=== PATIENT | male | born 1950 | race Caucasian/White ===

== ENCOUNTER 2021-05-28 19:14 | Emergency (ER) | payer MEDICARE, BC ==
--- NOTE | 2021-05-28 19:51 | EDM.PDOC ---
ED HPI GENERAL MEDICAL PROBLEM - General Chief Complaint: Lower Extremity Injury/Pain Stated Complaint: LEFT ACHELIS POSSABLY TORE Time Seen by Provider: 05/28/21 19:15 - History of Present Illness INITIAL COMMENTS - FREE TEXT/NARRATIVE: 70yoM with minimal PMH presents with left ankle pain and concern for Achilles tendon rupture. Patient was lifting a boat onto the rollers of the trailer had acute pain and felt a pop he is been unable to bear weight on his right forefoot since that time. Some pain in the calf as well no knee pain no other foot pain no fall no other injury. Pain is moderate and worsens with weightbearing. Left Lower Leg Pain Score (Numeric/FACES): 6 - Related Data Allergies Allergy/AdvReac Type Severity Reaction Status Date / Time No Known Allergies Allergy Verified 08/11/15 14:05 Review of Systems - Review of Systems Review Of Systems: See Below Eyes: Reports: No Symptoms Cardiovascular: Reports: No Symptoms GI/Abdominal: Reports: No Symptoms Musculoskeletal: Reports: Other (Per HPI) ED EXAM, GENERAL - Physical Exam Exam: See Below Free Text/Narrative:: General Appearance: No acute distress, appears comfortable Skin: No rash HEENT: Normocephalic/atraumatic, sclera anicteric, mucous membranes moist Neck: Normal range of motion Musculoskeletal: 2+ bilateral DP pulses no focal bony tenderness in the left foot no proximal fibula tenderness no knee tenderness. There is some mild ecchymosis surrounding the Achilles tendon where there is a palpable defect and a positive Dey test the foot is neurovascularly intact Neurologic: Awake, alert, no obvious deficits, moving all extremities Psychiatric: Appropriate, cooperative ED TRAUMA EXTREMITY PROCEDURES - Splinting Left Lower Extremity Splint Site: Left ankle Pre-Procedure NV Status: Normal Post-Procedure NV Status: Normal Splint Material: Fiberglass Splint Design: Other (Short leg post mold in resting equine) Applied & Form Fitted By: Nurse Provider Post-Splint Application NV Check: NV Status Normal Complications: No Course - Vital Signs Last Recorded V/S: Last Vital Signs Temp 97.9 F 05/28/21 19:34 Pulse 65 05/28/21 19:34 Resp 16 05/28/21 19:34 BP 122/81 05/28/21 19:34 Pulse Ox 96 05/28/21 19:34 Departure - Departure Time of Disposition: 20:40 Disposition: Home, Self-Care 01 Condition: Good Clinical Impression: Achilles tendon rupture - Discharge Information *PRESCRIPTION DRUG MONITORING PROGRAM REVIEWED*: Not Applicable *COPY OF PRESCRIPTION DRUG MONITORING REPORT IN PATIENT SKYLER: Not Applicable Instructions: Achilles Tendon Tear, Cast or Splint Care, Adult, [id number] Referrals: Maurice Man MD [Physician] - Forms: ED Department Discharge Additional Instructions: Please do not bear any weight on your left leg. Please leave the splint in place until you follow-up with orthopedic surgery. The following information is given to patients seen in the emergency department who are being discharged to home. This information is to outline your options for follow-up care. We provide all patients seen in our emergency department with a follow-up referral. The need for follow-up, as well as the timing and circumstances, are variable depending upon the specifics of your emergency department visit. If you don't have a primary care physician on staff, we will provide you with a referral. We always advise you to contact your personal physician following an emergency department visit to inform them of the circumstance of the visit and for follow-up with them and/or the need for any referrals to a consulting specialist. The emergency department will also refer you to a specialist when appropriate. This referral assures that you have the opportunity for follow-up care with a specialist. All of these measure are taken in an effort to provide you with optimal care, which includes your follow-up. Under all circumstances we always encourage you to contact your private physician who remains a resource for coordinating your care. When calling for follow-up care, please make the office aware that this follow-up is from your recent emergency room visit. If for any reason you are refused follow-up, please contact the [facility] Emergency Department at and asked to speak to the emergency department charge nurse. Sepsis Event Note (ED) - Evaluation Sepsis Screening Result: No Definite Risk - Focused Exam Vital Signs: Vital Signs Temp Pulse Resp BP Pulse Ox 05/28/21 19:34 97.9 F 65 16 122/81 96 - Assessment/Plan Assessment:: 70-year-old male presenting with signs and symptoms and exam findings consistent with left Achilles tendon rupture partial versus complete. Patient will be placed in a short leg posterior mold splint in resting equinus position and will follow up with orthopedic surgery. Patient states that he already has crutches at home.
[2021-05-28 20:59] VITALS: BP 127/82; PULSE 61
== END 2021-05-28 21:00 | disposition home or self-care (01) ==
LOC: MW.ED 19:14
DX: S86.012A Strain of left Achilles tendon, initial encounter (principal); X50.0XXA Overexertion from strenuous movement or load, initial encounter
CPT/HCPCS: 29515; 99283-25